=== PATIENT | female | born 1945 | race Caucasian/White ===

== ENCOUNTER → 2017-08-21 | Day surgery (SDC) | payer MEDICARE ==
[~2017-08-21] VITALS: Ht 162.6 cm; Wt 79.8 kg
[~2017-08-21] MED LIST: CHOL10008 PO; CYAN500 PO; FLUT16SP NS; FOLI-52 PO; KLO5T PO; Lactated Ringer's 1,000 ML IV ONE; Lactated Ringer's 1,000 ML IV SCH; MetoCLOpramide 5 mg/mL 2 mL Inj IVPUSH PRN; Ondansetron 2 mg/mL 2 mL Inj IVPUSH PRN; POLY17PO6 PO; Propofol 10,000 mCg/mL 20 mL Inj ONE; SIMV20TA4 PO
[2017-08-21 08:17] VITALS: BP 129/81; PULSE 76; O2SAT 97
--- NOTE | 2017-08-21 09:40 | PCM.HPANE ---
Patient Data Date of Service: Aug 21, 2017 Surgeon Admitting Provider: Attending Provider:Reginaldo Olmedo MD Primary Care Physician:Kelby Bermudez MD Other Provider:Ken Licona Anesthesia Reason for Visit Blood In Stool Ht/WT & BMI Height (Feet): 5 Height (Inches): 4 Weight (Kilograms): 79.8 Body Mass Index 30.00 Allergies Coded Allergies: codeine (Verified Allergy, Unknown, 08/17/17) oxycodone (Verified Allergy, Unknown, 12/17/15) Past Anesthesia History Anesthesia History: Denies:: Abnormal Airway, Anesthesia Reactions, Difficult Intubation, Fam Anesthesia Reaction, Fam Malignant Hypertherm, Malignant Hyperthermia Diabetes History Hx Diabetes?: No MRSA MRSA: No Medications Hypertension Medication: No Home Meds Incl Beta Rhea: No Reported Medications Fluticasone Propionate (Fluticasone Propionate Nasal)16 Gm [place].susp2 [place] NS BID #16 GM Ref 0 08/17/17 Polyethylene Glycol 3350 (Miralax)17 Gm Powd.pack17 Gm PO prn 02/25/16 Cholecalciferol (Vitamin D3) (Vitamin D3)1,000 Unit Tab.chew1,000 Unit PO DAILY 12/17/15 Cyanocobalamin (Vitamin B12)500 Mcg Tablet1,000 Mcg PO DAILY 10/26/15 Simvastatin 20 Mg Jobqgd27 Mg PO HS 30 Days Ref 0 05/26/15 Clonazepam 0.5 Mg Tab0.5 Mg PO TID PRN For Anxiety 30 Days Ref 0 05/26/15 Multivitamin/Iron/Folic Acid (Centrum Complete Multivit Tab)1 Each Tablet1 Each PO DAILY 05/26/15 History History of ENT Problems?: No HEENT History: Denies:: Abnormal Airway Difficult Intubation Dysphagia Hearing Problem Sinus Problem Denture Type: None Teeth Condition: Within Normal Limits Hx of Heart Problems?: No Cardiovascular History: Denies:: AICD Atrial Fibrillation Chest Pain Heart Murmur Hypertension Pacemaker Rheumatic Fever Thrombophlebitis Valvular Heart Disease Other History/Comments good functional capacity (aerobics 3x weekly for 1 hr) denies SOB. Denies LE edema. Has chart hx of pulm htn. Pt denies this "after substanstial workup". No ECHO since 2008 in system at that time no pulm htn and normal function. Hx of Respiratory Problem?: No Respiratory History: Denies:: Asthma COPD Cough Dyspnea Emphysema Hemoptysis Pneumonia Tuberculosis Hx Neurologic Problems?: No Neurological History: Denies:: Alzheimer's Disease CVA Dementia Dizziness Headaches Seizures Hx of GI Problems?: Yes Gastrointestinal History: Positive for:: Gastroesphageal Reflux Gastrointestinal Bleeding Hx of Problems?: No Genitourinary History: Denies:: HX of Hemodialysis Kidney Stones Urinary Tract Infection HX of Peritoneal Dialysis: No Female Hx: Denies:: Currently Endometriosis Pelvic Inflammatory Problems with Breasts? Hx Musculoskeletal Problems?: Yes Musculoskeletal History: Positive for:: Musculoskeletal Trauma Denies:: Back Injury Joint Replacement Hx of Psycho/Social Problems?: Yes Psycho Social History: Positive for:: Anxiety Denies:: Bipolar Disorder Hx Depression Hx Surgeries?: Yes (ROTATOR CUFFS, BTL, BLADDER, LUMBAR LAMI) Hx Any Other Health Problems?: No Other History: Positive for:: Hospitalization Denies:: Cancer Endocrine Disease Thyroid Disease Hx Diabetes: No Hx Alcohol Use: Yes (3 / MONTH)Hx Substance Use: No Smoking Status: Former Smoker Have You Smoked inLast 12 mo: No Stop/Bang Treated for Sleep Apnea?: No S-Snoring: Do You Snore Loudly: No T-Tired: feel tired, fatigued: No O-Obsered: Observed not breath: No P-Blood Pressure: treated: No B- Body Mass Index > 35 kg/m2: No A- Age over 50: Yes N- Neck Large Circumference: No G- Gender Male: No LYNDA Total Score: 1 LYNDA Risk Assessment: Low Risk, <3 Yes Risk Assessment Category Category 1A: Patient has history of documented sleep apnea, and HAS NOT received any narcotic, sedative or anesthesia administration during this stay. Category 1B: Patient has history of documented sleep apnea, and HAS received any narcotic , sedative or anesthesia administration during this stay Category 2: Patient has SUSPECTED Obstructive Sleep Apnea, and HAS received any narcotic , sedative or anesthesia administration during this stay. Category 3: Patient has SUSPECTED Obstructive Sleep Apnea and HAS NOT received narcotic, sedative or anesthesia administration during this stay. Category 4: Outpatient in Procedural Areas with known sleep apnea or who screen positive for High Risk via the STOP/BANG questionnaire. Exam Exam Vital Signs Vital Signs Date Time Temp Pulse Resp B/P Pulse Ox O2 Delivery O2 Flow Rate FiO2 08/21/17 08:17 36.4 76 129/81 97 Room Air General Appearance: Alert, Oriented X3 HEENT/AIRWAY: MP 3 Lungs: Clear to Auscultation Heart: Exam Unremarkable Meds/Labs/Diagnostics Admission Meds Current Medications Lactated Ringer's (Lr) 1,000 ml @ 10 mls/hr Q24H ONCE IV Last administered on 08/21/17t 08:50; Start 08/21/17 at 06:00; Stop 08/22/17 at 05:59 Plan Impression Patient chart reviewed, patient interviewed and anesthestic plan with risks, benefits, and alternatives discussed, and informed consent obtained. NPO per Anesth. Guidelines: Yes ASA Physical Status: ASA2 Mod Systemic Disease Anesthetic Plan: MAC Bene/Risks/Altern/Consents: Yes HP Complete Prior to Induction: Yes Kwame Cobb MD Aug 21, 2017 09:40
[2017-08-21 09:52] VITALS: BP 95/51; PULSE 80; RESP 12; O2SAT 96
[2017-08-21 09:59] VITALS: BP 107/64; PULSE 71; RESP 14; O2SAT 99
[2017-08-21 10:08] VITALS: BP 126/75; PULSE 65; RESP 14; O2SAT 100
--- NOTE | 2017-08-21 10:28 | ENDO ---
[address] [address] ENDOSCOPY PROCEDURE PATIENT: JOSE D HUERTA : 1945 MR#: [id number] ADMIT: 08/21/2017 JOB ID: [id number] DATE OF SERVICE: 08/21/2017 PRIMARY PROVIDER: Kelby Bermudez MD PROCEDURE: Colonoscopy. INDICATIONS: A 72-year-old female with a recent history of transient bright red blood per rectum. Historically, she had a failed colonoscopy, but an unremarkable virtual. Repeat attempt today is pursued at complete colonoscopy under anesthesia. EQUIPMENT: [employer]-180AL. SEDATION: Monitored anesthesia is provided by Dr. Kwame Cobb. COMPLICATIONS: None identified. BOWEL PREPARATION: Fair, adequate exam. PROCEDURE IN DETAIL: After the risks and benefits were explained, written and verbal informed consent was obtained. The patient was brought into the endoscopy suite and placed in the left lateral decubitus position. Sedation was achieved as above. Digital rectal examination accomplished. Mild internal hemorrhoids noted. The scope was introduced into the rectum and advanced to the cecum as identified by the appendiceal orifice and ileocecal valve. The scope was slowly withdrawn to carefully examine the mucosa for any defects or lesions. Multiple direct views were made through the dentate line for exclusion of pathology. The colon was decompressed. The scope removed from the patient who tolerated the procedure well. FINDINGS: A twisty sigmoid colon was again identified. However, we were able to navigate through this. There was a [id number] amount of diverticulosis in this region. No signs of proctitis, colitis throughout. No significant polyps or mass lesions. No vascular pathology. On direct views through the dentate line and the anal canal, there was mild to moderate internal hemorrhoids with an overlying superficial vascularity. No evidence of any active bleeding. ENDOSCOPIC DIAGNOSES: 1. Diverticulosis. 2. Hemorrhoids. RECOMMENDATIONS: 1. Repeat colonoscopy with anesthesia in 10 years' time or sooner should symptoms warrant an earlier exam. 2. Continue bowel regimen for soft regular stools as I suspect the bleeding has probably come from some mild hemorrhoidal irritation.
--- NOTE | 2017-08-21 12:03 | PCM.ANEP1 ---
Post Anesthesia PACU Phase 1 Assessment Vital Signs Vital Signs Date Time Temp Pulse Resp B/P Pulse Ox O2 Delivery O2 Flow Rate FiO2 08/21/17 10:08 65 14 126/75 100 Room Air 08/21/17 09:59 71 14 107/64 99 Room Air 08/21/17 09:52 80 12 95/51 96 Room Air 08/21/17 08:17 36.4 76 129/81 97 Room Air Anesthetic Administered: MAC Level of Alertness: Awake, talking Pain: No Nausea or Vomiting: No CV Function & Hydration Stable: Yes Airway Device: Oxygen Delivery: Room Air Lungs: Clear to Auscultation PACU Phase 2 Assessment Complications: No Follow up Care: N/A Patient Instructions Provided: N/A Kwame Cobb MD Aug 21, 2017 12:03
== END | disposition home or self-care (01) ==
LOC: END 00:20
PROVIDERS: ATTEND Internal Medicine Gastroenterology
DX: K57.30 Diverticulosis of large intestine without perforation or abscess without bleeding (principal); K64.9 Unspecified hemorrhoids; K92.1 Melena; I25.10 Atherosclerotic heart disease of native coronary artery without angina pectoris; I27.2 Other secondary pulmonary hypertension; G47.33 Obstructive sleep apnea (adult) (pediatric); K59.00 Constipation, unspecified; K21.9 Gastro-esophageal reflux disease without esophagitis; F41.9 Anxiety disorder, unspecified; Z85.020 Personal history of malignant carcinoid tumor of stomach; Z87.891 Personal history of nicotine dependence
CPT/HCPCS: 45378; J2704; J7120